=== PATIENT | female | born 2005 | race Two or more races ===

== ENCOUNTER → 2023-03-07 | Emergency (ER) | payer SELFPAY ==
[~2023-03-07] VITALS: Ht 165.1 cm; Wt 51.0 kg
[~2023-03-07] MED LIST: ACETAMINOPHEN 325MG TABLET PO ONE; DEXAMETHASONE 2MG TABLET PO NR; DEXAMETHASONE 4MG TABLET PO ONE; IBUP-2028 MT; IBUPROFEN 400MG TABLET PO ONE; TOPUD PO
[2023-03-07 16:56] VITALS: BP 113/59; PULSE 113; RESP 16; TEMP 99.5
== END ==
LOC: ER 16:44
DX: U07.1 COVID-19 (principal); J12.82 Pneumonia due to coronavirus disease 2019; I49.9 Cardiac arrhythmia, unspecified
CPT/HCPCS: 99285; 71045; 87426; 81025; 87804 ×2; 93005; C9803; J8540